=== PATIENT | female | born 1935 | race Two or more races ===

== ENCOUNTER 2020-03-15 11:21 | Emergency (ER) | payer OTHER | END 2020-03-15 11:40 | disposition left against medical advice (07) | LOC: ER 11:21 | DX: M25.511 Pain in right shoulder (principal); Z53.21 Procedure and treatment not carried out due to patient leaving prior to being seen by health care provider; W19.XXXA Unspecified fall, initial encounter; Y93.89 Activity, other specified; Y92.89 Other specified places as the place of occurrence of the external cause; Y99.8 Other external cause status ==